=== PATIENT | male | born 1960 | race African-American/Black ===

== ENCOUNTER 2018-07-04 10:29 | Emergency (ER) | payer SELFPAY ==
[~2018-07-04] VITALS: Ht 177.8 cm; Wt 89.0 kg
[2018-07-04] MEDS ORDERED: HALOPERIDOL LACTATE 5MG/ML VIAL IM ONE (10:45)
[2018-07-04 11:14] LABS: HEMATOCRIT. 44.5 % (42.0-52.0); HEMOGLOBIN. 14.9 g/dL (14.0-18.0); MEAN CORPUSCULAR HEMOGLOBIN 34.7 pg (28.0-32.0); MEAN CORPUSCULAR VOLUME 103.8 fL (80.0-94.0); MEAN PLATELET VOLUME 8.2 fl (7.4-10.4); PLATELET 199 x1000/uL (130-400); RED BLOOD CELL COUNT 4.29 mill/uL (4.7-6.1); RED CELL DISTRIBUTION WIDTH 15.8 % (11.6-14.6)
[2018-07-04 11:43] LABS: PLATELET ESTIMATE NORMAL
[2018-07-04 12:02] LABS: CHLORIDE 114 mEq/L (98-107)
[2018-07-04] MEDS ORDERED: SODIUM CHLORIDE 0.9% 1,000 ML IV ONE (12:09)
[2018-07-04 12:22] LABS: ETHANOL BLOOD 321 mg/dL
[2018-07-04 15:15] VITALS: BP 133/71
== END 2018-07-04 15:22 | disposition home or self-care (01) ==
LOC: ER 10:29
DX: F10.129 Alcohol abuse with intoxication, unspecified (principal); Y90.8 Blood alcohol level of 240 mg/100 ml or more; I10 Essential (primary) hypertension; F91.8 Other conduct disorders; E11.9 Type 2 diabetes mellitus without complications; Z79.899 Other long term (current) drug therapy
CPT/HCPCS: 36415; 80053; 85025; 93005; 96372; 99285; G0482; J1630; J7030; Z7610